=== PATIENT | male | born 1995 | race Caucasian/White ===

== ENCOUNTER 2018-02-14 16:51 | Emergency (ER) | payer OTHER ==
--- NOTE | 2018-02-14 17:01 | ER Report ---
History and Physical Time Seen By MD: 17:00 HPI/ROS CHIEF COMPLAINT: Cut L thumb with knife HISTORY OF PRESENT ILLNESS: Pt has a 1cm cut to dorsal aspect of his distal thumb on the dip joint. Occurred 40 minutes ago. Opens when he bends at the knuckle. Came her for closure. unknown tetnus REVIEW OF SYSTEMS: Constitutional: No fever, no chills. Eyes: No discharge. ENT: No sore throat. Cardiovascular: No chest pain, no palpitations. Respiratory: No cough, no shortness of breath. Gastrointestinal: No abdominal pain, no vomiting. Genitourinary: No hematuria. Musculoskeletal: No back pain. Skin: No rashes +1cm laceration Neurological: No headache. Allergies: Coded Allergies: No Known Drug Allergies (Unverified , 02/14/18) Home Meds No Active Prescriptions or Reported Meds Past Medical/Surgical History Denies pmhx or pshx Reviewed Nurses Notes: Yes Hx Smoking: No Hx Alcohol Use: Yes Constitutional Vital Sign - Last 24 Hours 02/14/18 17:04 Temp 98.0 Pulse 66 Resp 20 B/P (MAP) 127/65 Pulse Ox 92 O2 Delivery Room Air Physical Exam General appearance: alert no distress Right hand: There is no significant swelling. There is no obvious deformity to the hand. There is moderate tenderness of the 5th metacarpal. There is no snuff box tenderness. Left hand: no significant swelling, + full range of motion with laceration evident at DIP jiont of thumb. Pt is able to extend and flex. no evidence of tendon injury Skin: + 1cm laceration at DIP joint left thumb dorsal aspect over joint Neurologic exam: The patient has normal sensation distal to the injury. Tendon function is intact. Vascular exam: Normal pulses and capillary refill in the fingers [ ] DIFFERENTIAL DIAGNOSIS: After history and physical exam differential diagnosis was considered for tendon injury, laceration Medical Decision Making ED Course/Re-evaluation ED Course Procedure: Laceration repair. Verbal consent was obtained from the patient. The 1cm laceration on the left thumb at dip joint, was anesthetized in the usual fashion. The wound was scrubbed, draped and explored to its base with a gloved finger. There were no deep structures involved. No tendon injury was identified. The wound was repaired with ethlon 4.0. The wound repair was simple. The procedure was performed by myself. Decision to Disposition Date: Feb 14, 2018 Decision to Disposition Time: 17:26 Depart Departure Latest Vital Signs Vital Signs Date Time Temp Pulse Resp B/P (MAP) Pulse Ox O2 Delivery O2 Flow Rate FiO2 02/14/18 17:04 98.0 66 20 127/65 92 Room Air Impression: Primary Impression: Thumb laceration Condition: Improved Disposition: HOME OR SELF-CARE Referrals: TONY BUI DO (PCP) New Scripts No Active Prescriptions or Reported Meds Patient Instructions: Care For Your Stitches (ED) Additional Instructions: You have 3 sutures which need to be removed in 7-10 days. Neosporin or generic antibiotic ointment to wound twice a day. Keep are clean May shower and rinse your hand under running water. Return for any concerns. Problem Qualifiers Primary Impression: Thumb laceration Encounter type: initial encounter Damage to nail status: without damage Foreign body presence: unspecified Laterality: left Qualified Codes: S61.012A - Laceration without foreign body of left thumb without damage to nail, initial encounter ARAVIND STOVER DO Feb 14, 2018 17:00
[2018-02-14 17:04] VITALS: BP 127/65
[2018-02-14] MEDS ORDERED: BACITRACIN OINT 0.9 GM PKT TP ONE (17:25)
[2018-02-14] MEDS ORDERED: DIPHTH/TETANUS/ACEL. PERTUSSIS IM ONLY ONE (17:25)
== END 2018-02-14 17:55 | disposition home or self-care (01) ==
LOC: ER 17:15
DX: S61.012A Laceration without foreign body of left thumb without damage to nail, initial encounter (principal); W26.0XXA Contact with knife, initial encounter
CPT/HCPCS: 90471; 90715; 99283